=== PATIENT | male | born 1940 | race Asian ===

== ENCOUNTER 2023-02-26 12:30 | Emergency (ER) | payer MEDICARE, SELFPAY ==
[2023-02-26] VITALS (8 sets, daily range): BP systolic 120–139; BP diastolic 65–104; PULSE 76–144; RESP 14–29; TEMP 36.1; O2SAT 93–100; BMI 20.6
--- NOTE | 2023-02-26 12:37 | EX.ED.DYSGE1 ---
HPI History of Present Illness Chief Complaint: Palpitations [facility] Medical History (Updated 02/26/23 @ 12:40 by Juanita Murillo) Cataract Fourth nerve palsy Glaucoma History of prostate cancer Subdural hematoma Allergy/AdvReac Type Severity Reaction Status Date / Time No Known Allergies Allergy Verified 02/26/23 12:33 Surgical History (Updated 02/26/23 @ 12:40 by Juanita Murillo) H/O prostatectomy Social History Smoking Status: Never smoker EXAM Physical Exam Const Vital Signs: 02/26/23 12:35 02/26/23 12:40 02/26/23 12:40 Temperature 97 F L Temperature Source Temporal Pulse Rate 136 H Pulse Rate [1 (Initial Baseline)] Respiratory Rate 29 H Respiratory Rate [1 (Initial Baseline)] Respiratory Effort Normal Non-Labored Normal Non-Labored Respiratory Pattern Normal Blood Pressure 138/86 H Blood Pressure [1 (Initial Baseline)] Blood Pressure Mean 103 Pulse Ox 93 Oxygen Delivery Method Room Air Oxygen Delivery Method [1 (Initial Baseline)] Oxygen Flow Rate (L/min) Oxygen Flow Rate (L/min) [1 (Initial Baseline)] 02/26/23 13:08 02/26/23 13:46 02/26/23 13:47 Temperature Temperature Source Pulse Rate 128 H 144 H Pulse Rate [1 (Initial Baseline)] 87 Respiratory Rate 18 18 Respiratory Rate [1 (Initial Baseline)] 18 Respiratory Effort Respiratory Pattern Blood Pressure 120/65 127/95 H Blood Pressure [1 (Initial Baseline)] 131/104 H Blood Pressure Mean 83 Pulse Ox 98 99 Oxygen Delivery Method Room Air Non-Rebreather Oxygen Delivery Method [1 (Initial Baseline)] Non-Rebreather Oxygen Flow Rate (L/min) 15 Oxygen Flow Rate (L/min) [1 (Initial Baseline)] 15 02/26/23 13:55 02/26/23 14:00 02/26/23 14:05 Temperature Temperature Source Pulse Rate Pulse Rate [1 (Initial Baseline)] Respiratory Rate Respiratory Rate [1 (Initial Baseline)] Respiratory Effort Respiratory Pattern Blood Pressure Blood Pressure [1 (Initial Baseline)] Blood Pressure Mean Pulse Ox Oxygen Delivery Method Non-Rebreather Nasal Cannula Room Air Oxygen Delivery Method [1 (Initial Baseline)] Oxygen Flow Rate (L/min) 15 2 Oxygen Flow Rate (L/min) [1 (Initial Baseline)] 02/26/23 14:05 02/26/23 14:35 Temperature Temperature Source Pulse Rate 76 88 Pulse Rate [1 (Initial Baseline)] Respiratory Rate 14 18 Respiratory Rate [1 (Initial Baseline)] Respiratory Effort Respiratory Pattern Blood Pressure 137/69 H 138/83 H Blood Pressure [1 (Initial Baseline)] Blood Pressure Mean 91 Pulse Ox 100 99 Oxygen Delivery Method Room Air Oxygen Delivery Method [1 (Initial Baseline)] Oxygen Flow Rate (L/min) Oxygen Flow Rate (L/min) [1 (Initial Baseline)] [facility] [place] Medical decision making narrative: HISTORY OF PRESENT ILLNESS: 82-year-old male here for palpitations, new onset a flutter. He denies any chest pain, shortness of breath, no palpitations. He states he like to be cardioverted. REVIEW OF SYSTEMS: Pertinent positives: Palpitations Pertinent negatives: Syncope, chest pain, shortness of breath PHYSICAL EXAM: Nursing triage notes reviewed, Vital signs reviewed Constitutional: please see mdm HENT: MMM Eyes: Pupils equal round and reactive to light, Extraocular muscles intact Neck: No stridor, no JVD, full neck ROM Lungs: Clear to auscultation, No wheezing or rales. No increased work of breathing, no conversational dyspnea, no accessory muscle use, no nasal flaring. No respiratory distress noted Heart: Regular rate and rhythm, No murmurs, No rubs and No gallops, 2+ distal pulses (radial, femoral, posterior tibial) in all extremities Abdomen: Soft, there is no tenderness, rigidity, rebound or guarding, no obvious peritoneal signs, no palpable pulsatile abdominal masses, no auscultated abdominal bruit : No CVAT Extremities: No edema Neuro: No focal neurological deficits, cranial nerves II through XII intact, 5/5 strength in all extremities. Intact sensation to light touch in all extremities, 2+ reflexes bilateral patella tendons. Normal gait. No ataxia. Skin: No rash or lesions noted MEDICAL DECISION MAKING: Chief Complaint: Palpitations, atrial flutter External records reviewed: No recent hospitalizations or ED visits Factors affecting care: None Social determinants of health: Elderly History obtained from others: None Consults: none ALL IMAGES HAVE BEEN PERSONALLY REVIEWED AND INTERPRETED BY MYSELF. MDM Narrative: I considered the following differential diagnosis: Arrhythmia, myocardial schema, anemia, electrolyte abnormality, thyroid dysfunction, heart failure I obtained a broad lab and imaging work-up to further elucidate the etiology of the patient complaints. Labs showed no evidence of myocardial ischemia, significant anemia or electrolyte abnormalities. TSH within normal limits. BNP was elevated likely secondary to arrhythmia which produced increased ventricular stretch and transmural pressure. Patient underwent cardioversion. Please see procedure note. Patient was cardioverted with the assistance of etomidate for procedural sedation. He underwent synchronized cardioversion with 150 J. This resulted in return to normal sinus rhythm. Patient was asymptomatic. Labs images reassuring. troponin was negative. I shared decision-making was had with the patient. I offered him observation overnight given his advanced age and initial abnormal heart rhythm. The patient was alert and orient x3 and had capacity to make his own medical decisions. He chose to be discharged home with close outpatient cardiology follow-up. This was also communicated to the patient's over the phone. They agreed with the plan. He is appropriate for discharge home. The procedure was performed by myself. Intra-Service Time: 15 minutes Indication: Completion of a potentially painful procedure. Pre-sedation Evaluation: ASA class I, Mallampati 1, full neck range of motion, last meal was last night Patient is an appropriate candidate for procedural sedation. The risks of sedation were discussed with the patient and/or legal guardian. A time out was completed. The patient was reevaluated immediately prior to initiation of sedation. IV access established. The patient was sedated with etomidate 10 mg The patient was monitored with continuous pulse oximetry, security monitor, and capnography. The patient protected their airway well, with vital signs remaining stable throughout the duration of the procedure. There were no complications and no significant hypoxemia. I remained at the bedside for the sedation. I provided 15 minutes of intra-service time. Post sedation evaluation: Patient was alert and cooperative, hemodynamically stable with appropriate respiratory status, temperature and pain control without ongoing nausea and vomiting. Total critical care time today provided was at least 0 minutes. This excludes separately billable procedures. There was a high probability of clinically significant/life threatening deterioration in the patient's condition which required my urgent intervention. Shared decision making: I will have a discussion with the patient and or visitors regarding risk/benefits of further testing or admission. They will be made aware of of the risk/benefits inherent in this decision they will be given the opportunity to voice understanding. Lab Data Attestation: I reviewed the patient's lab results. Lab results narrative: Initial EKG shows atrial flutter, occasional PVCs, no obvious ischemic changes Post cardioversion EKG shows normal sinus rhythm, normal axis, normal intervals, no STEMI CBC without leukocytosis, severe anemia, no thrombocytopenia. BMP without evidence of significant electrolyte abnormalities, no anion gap, no acute kidney injury. Troponin is negative, no evidence of myocardial ischemia TSH within normal limits suggestive of no hyperthyroidism BNP elevated likely secondary to a flutter. No stigmata of heart failure on exam Labs: Laboratory Results - last 24 hr 02/26/23 02/26/23 02/26/23 12:50 12:50 12:50 WBC 8.9 RBC 4.69 Hgb 14.8 Hct 45.1 MCV 96.2 H MCH 31.6 MCHC 32.8 RDW Std Deviation 46.3 H RDW Coeff of [place] 13.1 Plt Count 207 MPV 8.6 Immature Gran % (Auto) 0.200 Neut % (Auto) 71.9 H Lymph % (Auto) 13.9 L [place] % (Auto) 13.2 H Eos % (Auto) 0.4 Baso % (Auto) 0.4 Absolute Neuts (auto) 6.4 Absolute Lymphs (auto) 1.24 Nucleated RBC % 0 Sodium 142 Potassium 4.0 Chloride 110 H Carbon Dioxide 27.0 Anion Gap 5 BUN 19 H Creatinine 0.99 Estim Creat Clear Calc 24.05 Est GFR (MDRD) Af Amer 92 Est GFR (MDRD) Non-Af 76 BUN/Creatinine Ratio 19.1 Glucose 109 H Calcium 8.7 Troponin I High Sens 17 B-Natriuretic Peptide 680.7 H TSH 1.29 Radiography Diagnostic Testing: Clinical Impression(s) from Imaging Studies Chest X-Ray 02/26/23 13:05 IMPRESSION: Prominence of the aortic knob as described with calcification. Correlation with a CT scan is recommended. Electronically Signed: Feliciano Pineda MD at 13:35 EDT , I have personally reviewed the patient's chest x-ray. Chest x-ray is unremarkable for pulmonary edema, pneumothorax, pneumonia or focal cardiopulmonary abnormality. Procedures Procedural Sedation 1 (Initial Baseline): Consent Signed: Yes Any Problems With Anesthesia: No You/Your family experience fever (hyperthermia) w/anesthesia: No Sedation medication: Etomidate Dose: 10 Route: IV Maliampati Score: Class I ASA Classification: I Discharge Plan Triage Chief Complaint: Palpitations ED Provider: Yfn Espinal Dx/Rx/DC Orders Instructions: ED Atrial Flutter Primary Care Provider: Hugo Patel Referrals: Mari Browning PLUNGER SHOVEL OPERATOR, PLUNGER SHOVEL OPERATOR-C [Non-Staff] - Activity Restrictions/Additional Instructions: Thank you for trusting us with your care today! Please return to the emergency department if your symptoms change or worsen. Specifically if you develop palpitations, chest pain, shortness of breath, if you lose consciousness, you develop nausea or vomiting or cannot tolerate medicine by mouth. Please follow with your primary care physician for further outpatient evaluation and management. Disposition Disposition: Home, Self Care Discharge Date/Time: 02/26/23 15:15
--- NOTE | 2023-02-26 12:52 | EKG12_ITS ---
Test Reason : AFIB Blood Pressure : / mmHG Vent. Rate : 131 BPM Atrial Rate : 144 BPM P-R Int : 200 ms QRS Dur : 088 ms QT Int : 274 ms P-R-T Axes : 000 002 045 degrees QTc Int : 404 ms Atrial flutter Nonspecific T wave abnormality Abnormal ECG Confirmed by RG HARDING, BOLIVAR ([id number]), make up editor SIVAN ACOSTA ([id number]) on 03/02/2023 8:44:46 AM Referred By: Confirmed By:BOLIVAR DIEZ MD
[2023-02-26] MEDS: Ondansetron 4 MG/2 ML Vial IV (13:00)
[2023-02-26] MEDS: 0.9% Normal Saline 1,000 ML 1000 ML IV (13:00)
--- NOTE | 2023-02-26 13:05 | RAD_ITS ---
STUDY: X-RAY CHEST REASON FOR EXAM: Male, 82 years old. Chest pain and palpitations. TECHNIQUE: Single AP portable view of the chest. COMPARISON: None. FINDINGS: EKG electrodes are seen. Hyperinflation. There is no demonstrated pleural abnormality. Normal size heart. Normal mediastinum and waqas. Normal visualized pulmonary arteries. There is atherosclerotic calcification of the aortic arch with tortuosity. There appears to be a prominence of the aortic arch. Correlation with the CT scan of the aortic arch is recommended for further evaluation. Normal visualized thoracic spine. Normal visualized ribs, clavicles, and shoulders. There is no demonstrated abnormality of the visualized soft tissue structures of the upper abdomen. RAD/Chest 1 View (Portable) IMPRESSION: Prominence of the aortic knob as described with calcification. Correlation with a CT scan is recommended. Electronically Signed: Feliciano Pineda MD at 13:35 EDT ,
[2023-02-26 13:06] LABS: Absolute Lymphocyte Count 1.24 X10^3/uL (0.83-4.51); Absolute Neutrophil Count 6.4 X10^3/uL (2.0-7.7); Basophil# 0.04 X10^3/uL; Basophil% 0.4 % (0-1); Eosinophil# 0.04 X10^3/uL; Eosinophils% 0.4 % (0-5); Hematocrit 45.1 % (40-54); Hemoglobin 14.8 g/dL (13.0-16.5); Lymphocyte # 1.24 X10^3/ul (0.83-4.51); Lymphocyte % 13.9 % (19-41); Mean Corp Hgb Conc 32.8 g/dL (32-36); Mean Corpuscular Hgb 31.6 pg (27.0-32.0); Mean Corpuscular Volume 96.2 fL (80-94); Mean Platelet Vol. 8.6 fl (6.2-12.0); Monocyte# 1.18 X10^3/uL; Monocyte% 13.2 % (0-10); NRBC Flagged by Analyzer 0 % (0-5); Neutrophil # 6.41 X10^3/uL (2.7-7.7); Neutrophil % 71.9 % (47-70); Platelet Count 207 K/mm3 (150-450); RBC Distribution Width CV 13.1 % (11.6-14.6); RBC Distribution Width SD 46.3 fl (35.1-43.9); Red Blood Count 4.69 M/mm3 (4.6-6.2); White Blood Count 8.9 K/mm3 (4.4-11.0)
[2023-02-26 13:27] LABS: BNP,B-Type NATRIURETIC PEPTIDE 680.7 pg/mL (0-100)
[2023-02-26 13:30] LABS: Anion Gap 5 (5-15); BUN 19 mg/dL (7-18); BUN/Creat Ratio 19.1 RATIO (10-20); Calcium,Total 8.7 mg/dL (8.5-10.1); Chloride 110 mmol/L (98-107); Creatinine, Serum 0.99 mg/dL (0.70-1.30); EST Glomerular Filtration Rate 76 mL/min (>60); Est Glom Filt Rate - Afr Amer 92 mL/min (>60); Estimated Creatinine Clearance 24.05 ml/min; Glucose 109 mg/dL (74-106); Sodium Level 142 mmol/L (136-145); Thyroid Stim Hormone (TSH) 1.29 uIU/mL (0.358-3.74); Troponin-I HS 17 pg/mL (3.0-78.0)
[2023-02-26] MEDS: Etomidate 20 MG/10 ML Vial 10 MG IV (13:48)
--- NOTE | 2023-02-26 15:10 | ED.RN ---
Dr. Espinal spoke with pt's to discuss discharge.
--- NOTE | 2023-02-26 15:18 | ED.RN ---
called security at [facility] to inform that patient was walking to their office, was to be waiting to in waiting room, waiting for a ride. Also notified Fatmata IRBY
--- NOTE | 2023-02-26 15:25 | ED.RN ---
multiple calls made to patient with no answer.
--- NOTE | 2023-02-26 16:04 | ED.RN ---
PD given pt's phone number and 's number.
--- NOTE | 2023-02-26 17:00 | ED.RN ---
Police continue to look for pt. Welfare check at home but pt not there.
--- NOTE | 2023-02-27 15:47 | ED.RN ---
CALLED PT TODAY, PT IS SAFE. THANKFUL TO NURSING STAFF AND PHYSICIAN. APPRECIATIVE OF CARE.
== END 2023-02-26 15:15 | disposition home or self-care (01) ==
PROVIDERS: Emergency Provider Emergency Medicine; PCP Internal Medicine; Visit Provider Emergency Medicine
DX: R00.2 Palpitations (principal); I48.92 Unspecified atrial flutter; R06.02 Shortness of breath; R55 Syncope and collapse
CPT/HCPCS: 71045; 80048; 83880; 84443; 84484; 85025; 92960; 93005; 96361; 96374; 96375; 99285; J2405